=== PATIENT | male | born 1955 | race Two or more races ===

== ENCOUNTER 2020-03-16 12:35 | Outpatient (CLI) | payer MEDICARE, OTHER ==
[~2020-03-16] VITALS: Ht 160 cm; Wt 89.8 kg
[~2020-03-16 12:35] MED LIST: ATORVASTATIN CA40 MG ORAL; JANUVIA100 MG ORAL; JARDIANCE PO; LISINOPRIL10 MG ORAL; METFORMIN HCL1000 M1 ORAL
[2020-03-16 12:54] VITALS: BP 147/85
--- NOTE | 2020-03-17 08:30 | Consultation ---
DATE OF CONSULTATION: 03/16/2020 GASTROENTEROLOGY CONSULTATION CONSULTING PHYSICIAN: Han Medina MD. CHIEF COMPLAINT: Anemia. PAST MEDICAL HISTORY: 1. Hypercholesterolemia. 2. Hypertension. 3. Diabetes. PAST SURGICAL HISTORY: Cataract surgery, hernia surgery. MEDICATIONS: Please see medication reconciliation list. FAMILY HISTORY: No family history of GI malignancies. SOCIAL HISTORY: The patient denies any tobacco, alcohol, or IV drug abuse. ALLERGIES: No known drug allergies. REVIEW OF SYSTEMS: Positive for anemia. PHYSICAL EXAMINATION: VITAL SIGNS: Temperature 97.5, blood pressure 142/78, pulse is 82, respirations 20. Height is 5 feet 3 inches, weight is . HEENT: Normocephalic, atraumatic. Sclerae anicteric. NECK: Supple. No evidence of obvious lymphadenopathy. CARDIOVASCULAR: Regular rate and rhythm. Plus S1 and S2. LUNGS: Clear to auscultation bilaterally. ABDOMEN: Positive bowel sounds. Soft and nontender. No rebound. No guarding. No peritoneal sign. EXTREMITIES: No cyanosis. No clubbing. No edema. ASSESSMENT AND PLAN: This is a 64-year-old male, referred for evaluation of anemia. The patient needs an endoscopy and colonoscopy. The risks and benefits of procedure was explained to the patient. The prep was explained to him and we will schedule him as soon as authorization is obtained. Han Medina M.D. DR: TIFFANIE JOB#: [id number] CC:
== END 2020-03-16 14:35 | disposition home or self-care (01) ==
LOC: PAN 12:35
DX: D64.9 Anemia, unspecified (principal); E78.00 Pure hypercholesterolemia, unspecified; I10 Essential (primary) hypertension; E11.9 Type 2 diabetes mellitus without complications
CPT/HCPCS: G0463

== ENCOUNTER 2020-04-13 06:41 | Day surgery (SDC) | payer MEDICARE, OTHER ==
[~2020-04-13] VITALS: Ht 157.5 cm; Wt 88.5 kg
[2020-04-13] VITALS (9 sets, daily range): BP systolic 115–148; BP diastolic 68–83
[2020-04-13] MEDS ORDERED: LR 1000ml 1,000 ML IVLG SCH ×2 (08:00→08:30)
--- NOTE | 2020-04-13 08:20 | Anethesia Preoperative Eval ---
Anesthesia Pre-op PMH/ROS General Date of Evaluation: Apr 13, 2020 Time of Evaluation: 08:17 Anesthesiologist: Tena ASA Score: ASA 3 Mallampati Score Class I : Soft palate, uvula, fauces, pillars visible Class II: Soft palate, uvula, fauces visible Class III: Soft palate, base of uvula visible Class IV: Only hard plate visible Mallampati Classification: Class III Surgeon: Carol Diagnosis: Anemia Surgical Procedure: EGD Colonoscopy Anesthesia History: none Family History: no anesthesia problems Allergies: Coded Allergies: No Known Allergies (Unverified , 04/08/20) Medications: see eMAR Patient NPO?: Yes Past Medical History Cardiovascular: Reports: HTN - stable on meds; Denies: CAD, AL, valve dz, arrhythmia, other Pulmonary: Reports: ARY; Denies: asthma, COPD, other Gastrointestinal/Genitourinary: Reports: GERD; Denies: CRI, ESRD, other Neurologic/Psychiatric: Denies: dementia, CVA, depression/anxiety, TIA, other Endocrine: Reports: DM - on pills; Denies: hypothyroidism, steroids, other HEENT: Reports: cataract (L), cataract (R) - s/p bilateral Sx; Denies: glaucoma, HUSLIA (L), HUSLIA (R), other Hematology/Immune: Reports: anemia; Denies: DVT, bleeding disorder, other Musculoskeletal/Integumentary: Denies: OA, RA, DJD, DDD, edema, other Other: obesity PMH Narrative: as above PSxH Narrative: bilateral cataracts, hernia repair Anesthesia Pre-op Phys. Exam Physician Exam Last Vital Signs Date Time Temp Pulse Resp B/P (MAP) Pulse Ox O2 Delivery O2 Flow Rate FiO2 04/13/20 07:34 Room Air 04/13/20 07:10 97.0 83 18 137/76 100 Constitutional: NAD Neurologic: CN 2-12 intact Cardiovascular: RRR, no M/R/G Respiratory: CTA Gastrointestinal: other - obesity Airway Exam Mallampati Score: Class III MO: limited Neck: short ROM: limited Teeth: missing Dentures: no upper, no lower Anesthesia Pre-op A/P Labs Chemistry Test 04/13/20 07:21 POC Whole Blood Glucose Pending Studies Pre-op Studies: EKG - sr Risk Assessment & Plan Assessment: ASA 3 Plan: MAC Status Change Before Surgery: Nelson Turner MD Apr 13, 2020 08:20
[2020-04-13] MEDS ORDERED: fentaNYL 100 mcg/2 mL IV PRN (08:30)
[2020-04-13] MEDS ORDERED: fentaNYL 100 mcg/2 mL IV ONE (08:33)
[2020-04-13] MEDS ORDERED: Midazolam 2mg/2ml Inj ONE (08:33)
--- NOTE | 2020-04-13 08:53 | Pre-Procedure Note/Attestation ---
Pre-Procedure Note/Attestation Complete Prior to Procedure Planned Procedure: not applicable Procedure Narrative: esophagogastroduodenoscopy and colonoscopy Indications for Procedure Pre-Operative Diagnosis: screening colon, GERD Attestation I attest that I discussed the nature of the procedure; its benefits; risks and complications; and alternatives (and the risks and benefits of such al ternatives), prior to the procedure, with the patient (or the patient's legal field marketing representative). I attest that, if there was a reasonable possibility of needing a blood transfusion, the patient (or the patient's legal field marketing representative) was given the [facility] standardized written summary, pursuant to the Yuniel Keyes Blood Safety Act ([place] Health and Safety Code # 1645, as amended). I attest that I re-evaluated the patient just prior to the surgery and that there has been no change in the patient's H&P, except as documented below: Han Medina MD Apr 13, 2020 08:52
--- NOTE | 2020-04-13 08:53 | Short Stay Surgery H&P ---
History of Present Illness History of Present Illness Chief Complaint see recent office note HPI Leon Mireles is a 64 year old male who was admitted on for Gerd, Anemia Patient History Allergies: Coded Allergies: No Known Allergies (Unverified , 04/08/20) Medication History Scheduled Atorvastatin Calcium* (Atorvastatin Calcium*), 40 MG ORAL BEDTIME, (Reported) Lisinopril* (Lisinopril*), 10 MG ORAL DAILY, (Reported) Metformin Hcl* (Metformin Hcl*), 1,000 MG ORAL BID, (Reported) Sitagliptin (Januvia*), 100 MG ORAL DAILY, (Reported) [Jardiance], 25 MG PO DAILY, (Reported) Physical Exam Vital Signs Last Vital Signs Date Time Temp Pulse Resp B/P (MAP) Pulse Ox O2 Delivery O2 Flow Rate FiO2 04/13/20 07:34 Room Air 04/13/20 07:10 97.0 83 18 137/76 100 Labs Laboratory Tests Test 04/13/20 07:21 POC Whole Blood Glucose Pending Plan Attestation Are the patient's medical conditions optimized for surgery? Han Medina MD Apr 13, 2020 08:53
[2020-04-13] MEDS ORDERED: LR 1000ml ONE (09:00)
--- NOTE | 2020-04-13 09:01 | Endoscopy Procedure Note ---
Endoscopy Procedure Note General Indication for Procedure: anemia Procedures Performed: EGD, colonoscopy Operative Findings/Diagnosis: gastritis, hemorhoids Specimen: yes Pt Tolerated Procedure Well: Yes Estimated Blood Loss: none Anesthesia Anesthesiologist: freeman Anesthesia: MAC Inserted Devices Implant(s) used?: No Quality Quality of Bowel Preparation: Good Did scope reach the cecum?: Yes Was there any complications?: No GI Core Measures 50 yrs or older w/o bx or poly: No 10yrs. F/U recommended: Yes If not recommended, why?: Above average risk 18 years or older w/prev. colo: No Han Medina MD Apr 13, 2020 09:00
--- NOTE | 2020-04-13 09:21 | Immediate Post-Op Evaluation ---
Immediate Post-Op Evalulation Immediate Post-Op Evalulation Procedure: EGD Colonoscopy Date of Evaluation: Apr 13, 2020 Time of Evaluation: 09:20 IV Fluids: 600 Blood Products: none Estimated Blood Loss: none Urinary Output: none Blood Pressure Systolic: 117 Blood Pressure Diastolic: 76 Pulse Rate: 76 Respiratory Rate: 20 O2 Sat by Pulse Oximetry: 100 Temperature (Fahrenheit): 97.6 Pain Score (1-10): 1 Nausea: No Vomiting: No Complications none Patient Status: awake, patent, none Hydration Status: adequate Nelson Madsen MD Apr 13, 2020 09:21
--- NOTE | 2020-04-13 09:59 | Procedure Note ---
DATE OF PROCEDURE: 04/13/2020 SURGEON: Han Medina MD. REFERRING PHYSICIAN: Dr. Rodriguez. PROCEDURE: Upper endoscopy with biopsy and colonoscopy. ANESTHESIA: Per Dr. Madsen. INSTRUMENT: Olympus adult flexible upper endoscope and colonoscope. INDICATION: Screening colonoscopy evaluation and anemia. REASON FOR PROCEDURE: The procedure, risks, benefits, and possible consequences, including hemorrhage, aspiration, perforation and infection, and alternative treatments, were explained to the patient/legal guardian by Dr. Han Medina and the patient/legal guardian understood and accepted these risks. PROCEDURE IN DETAIL: After informed consent was obtained and the patient was adequately sedated, Olympus upper endoscope was advanced from mouth into the second portion of the duodenum and retroflexion was performed in the stomach. The patient had multiple erosions in the upper body of the stomach, upper body/fundus of the stomach. Biopsy from this area was obtained. The patient also had evidence of gastritis. Random biopsy from antrum was obtained to rule out H. pylori infection. In the duodenum, there was evidence of mild duodenitis. Otherwise, the rest of upper endoscopic examination was grossly within normal limits. At this time, the upper endoscope was retrieved and the patient was turned over for colonoscopy. First, rectal exam was performed, which was positive for internal hemorrhoids. Then, the scope was advanced from the rectum into the cecum, then subsequently terminal ileum. Quality of prep was good. The patient had a normal colonoscopy examination. No obvious mass, polyp, or any pathology was seen. Retroflexion of rectum showed evidence of internal hemorrhoids. SUMMARY OF FINDINGS: 1. Multiple antral erosions. 2. Gastritis, status post biopsy. 3. Duodenitis. 4. Internal hemorrhoids. RECOMMENDATIONS: Follow biopsy results and treat accordingly. The patient most probably will benefit from PPI daily. The patient needs to follow up in the office for further management of anemia. I want to thank Dr. Rodriguez for this kind referral. Han Medina M.D. DR: YUE JOB#: [id number] CC: Dr. Rodriguez
--- NOTE | 2020-04-13 11:24 | 48 Hour Post Anesthesia Eval ---
Post Anesthesia Evaluation Procedure: EGD Colonoscopy Date of Evaluation: Apr 13, 2020 Time of Evaluation: 11:23 Blood Pressure Systolic: 148 0: 76 Pulse Rate: 72 Respiratory Rate: 20 Temperature (Fahrenheit): 97.6 O2 Sat by Pulse Oximetry: 98 Airway: patent Nausea: No Vomiting: No Pain Intensity: 1 Hydration Status: adequate Cardiopulmonary Status: stable Mental Status/LOC: patient returned to baseline Follow-up Care/Observations: n/a Post-Anesthesia Complications: none Follow-up care needed: ready to discharge Nelson Madsen MD Apr 13, 2020 11:24
== END 2020-04-13 10:15 | disposition home or self-care (01) ==
LOC: GAS 06:41
DX: Z12.11 Encounter for screening for malignant neoplasm of colon (principal); D64.9 Anemia, unspecified; I10 Essential (primary) hypertension; G47.33 Obstructive sleep apnea (adult) (pediatric); K21.9 Gastro-esophageal reflux disease without esophagitis; E11.9 Type 2 diabetes mellitus without complications; Z79.84 Long term (current) use of oral hypoglycemic drugs; E66.9 Obesity, unspecified; Z68.35 Body mass index [BMI] 35.0-35.9, adult
CPT/HCPCS: 43239; 82962; 94003; G0121; J2250; J2704; J3010; J7120; U0002; 94150

== ENCOUNTER 2020-04-20 12:50 | Outpatient (CLI) | payer MEDICARE, OTHER ==
--- NOTE | 2020-04-20 13:26 | General Progress Note ---
Subjective ROS Limited/Unobtainable: Yes Allergies: Coded Allergies: No Known Allergies (Unverified , 04/08/20) Objective General Appearance: alert EENT: normal ENT inspection Neck: supple Cardiovascular: normal rate Respiratory/Chest: decreased breath sounds Abdomen: normal bowel sounds, non tender, soft Extremities: non-tender Assessment/Plan Assessment/Plan: SUMMARY OF FINDINGS: 1. Multiple antral erosions. 2. Gastritis, status post biopsy. 3. Duodenitis. 4. Internal hemorrhoids. treat for H.pylori RTC 3 months repeat colon 5 years Han Medina MD Apr 20, 2020 13:26
== END 2020-04-20 14:50 | disposition home or self-care (01) ==
LOC: PAN 12:50
DX: K64.8 Other hemorrhoids (principal); K29.80 Duodenitis without bleeding; K29.70 Gastritis, unspecified, without bleeding
CPT/HCPCS: 99212